=== PATIENT | female | born 1960 | race Caucasian/White ===

== ENCOUNTER 2021-08-29 10:18 | Emergency (ER) | payer OTHER ==
[~2021-08-29 10:18] MED LIST: FLEXERIL10 MG PO; GABAPENTIN400 MG PO; GABAPENTIN800 MG PO; HYDROCODON-ACE1 EAC4 PO; INDERAL20 MG PO; LIDOCAINE 2%30 ML TOP; LITHIUM300 MG PO; MEDROL 4MG DOSEP4 MG PO; MOBIC7.5 MG PO; NORCO 5-325 TA1 EACH PO; PERCOCET 5/3251 TAB PO; PRILOSEC20 MG PO; TRAZODONE 100M100 MG PO; XARELTO10 MG PO; ZOFRAN4 MG PO; ZOLOFT100 MG PO
== END 2021-08-29 13:15 | disposition left against medical advice (07) ==
LOC: FER 10:18
DX: M25.512 Pain in left shoulder (principal); Z53.8 Procedure and treatment not carried out for other reasons
CPT/HCPCS: 73030